=== PATIENT | female | born 1935 | race Caucasian/White ===

== ENCOUNTER 2018-01-09 05:56 | Day surgery (SDC) | payer OTHER ==
[~2018-01-09] VITALS: Ht 167.6 cm; Wt 75.7 kg
--- NOTE | ~2018-01-09 | O ---
[facility] [place] [address] OPERATIVE REPORT Name: INGRID CANDELARIA Room #: DEP [facility].#: [id number] Admission: 01/09/18 Attend Phys: Sadiq Donald MD, Discharge: 01/09/18 Date of : 39 Report #: [id number] THIS REPORT FOR: //name// CC: Yary Sarabia DATE OF SERVICE: 01/09/2018 PREOPERATIVE DIAGNOSIS: Right inguinal hernia. POSTOPERATIVE DIAGNOSES: 1. Incarcerated right inguinal hernia containing bladder and omentum. 2. Incarcerated incisional ventral hernia. PROCEDURES PERFORMED: 1. Robotic-assisted laparoscopic transabdominal preperitoneal (BRYAN) repair of an incarcerated right inguinal hernia with mesh. 2. Laparoscopic reduction and primary suture repair of an incarcerated incisional ventral hernia. SURGEON: Sadiq Donald MD ENTRY LEVEL ACCOUNT REPRESENTATIVE: None. ANESTHESIA: General endotracheal anesthesia. ESTIMATED BLOOD LOSS: Minimal (less than 5 mL). COMPLICATIONS: None appreciated. SPECIMENS: None. INDICATIONS: The patient is an 82-year-old female who is slightly greater than 2 months status post robotic hemicolectomy for colon cancer and presented with significant discomfort in the right groin with an obviously palpable right inguinal hernia. The patient was having urinary issues and this was relieved with pressing on her hernia when urinating and suspicion was that bladder was contained within the hernia. Indication was therefore for the above-mentioned procedure today. DESCRIPTION OF PROCEDURE: After explaining the risks, benefits and alternatives of the procedure with the patient in detail in the preoperative holding area and obtaining written consent, the patient was brought to the operating room and placed supine on the operating room table. After conducting a thorough timeout procedure verifying correct patient and procedure, the patient was given general [facility] [address] [place] [address] OPERATIVE REPORT Name: INGRID CANDELARIA Room #: DEP [facility]#: [id number] Admission: 01/09/18 Attend Phys: Sadiq Donald MD, Discharge: 01/09/18 Date of : 39 Report #: [id number] endotracheal anesthesia. Once adequate anesthesia was obtained, her SCDs were hooked up to pneumatic compression device and she was given a preoperative dose of antibiotics in line with the SCIP protocol. The patient's abdomen was now prepped and draped in standard surgical sterile fashion after positioning her in the low lithotomy position with her legs in the Yellofin stirrups. 5 mL of 0.5% Marcaine with epinephrine were used to anesthetize the skin in the supraumbilical location. A #15 bladed scalpel was used to create a 1 cm transverse skin incision at this location. A 5 mm Visiport was placed over 0 degree 5 mm laparoscope and was introduced through this incision site. Once intra-abdominal placement was verified visually, the obturator for the trocar and laparoscope were both removed and the abdomen was insufflated to 15 mmHg using carbon dioxide gas. The laparoscope was changed to a 5-mm 30-degree laparoscope, which was reintroduced through this trocar. The entire abdomen was evaluated to ensure no injury upon entry. In the left lateral abdomen, there was incarcerated omentum contained within an incisional hernia from one of her robotic trocar sites. The right lateral abdomen was devoid of adhesions and as such I placed an 8 mm robotic trocar lateral to the umbilicus at the anterior axillary line under direct vision after anesthetizing the skin at that location with 5 mL of 0.5% Marcaine with epinephrine and I created a small skin suzi using #15 bladed scalpel. I now utilized a hook electrocautery to transect the omentum at the abdominal wall level in the left lower abdomen. I now placed an additional 8 mm trocar in the left midabdomen lateral to the umbilicus at the anterior axillary line in similar fashion as the other side after anesthetizing the skin at that location with 5 mL of 0.5% Marcaine with epinephrine and I created a small skin suzi using #15 bladed scalpel. I now proceeded to exchange the supraumbilical trocar for an 8 mm da Sharona robotic camera port. This was done under direct vision as well. The da Sharona SI robot was now brought up through the lithotomy position and docked in standard fashion. I then broke scrub and enter the robotic terminal. Immediately a 2-0 Stratafix suture was placed in the abdomen and using a ProGrip forceps and a needle oil truck driver on the right hand, I was able to suture repair the incisional hernia in the left lateral lower abdomen. The needle was removed and passed off the field and I now utilized electrocautery scissors to score the peritoneum from the posterior aspect to the anterior superior iliac spine on the right across midline. I now dissected in the preperitoneal plain using combination of blunt dissection and electrocautery. I carried this dissection as low in the pelvic brim as possible and there was incarcerated omentum and an obvious right inguinal hernia. This was reduced with gentle manual traction and the hernia sac was reduced in full. The right lateral aspect of the dome of the bladder was incarcerated within the hernia. This was reduced with ease as well and from the hernia sac. Once I had carried this dissection as low on the pelvic brim as possible below the pubic tubercle and had ensured that we had reduced the hernia sac completely, I selected a piece of ProGrip mesh tailored to the right groin space. This was entered in the abdomen through the 8 mm trocar and maneuvered into the right groin space, was pressed in the abdominal wall and unrolled inferiorly giving us excellent overlap outside the hernia defect in question. [facility] [address] [place] [address] OPERATIVE REPORT Name: INGRID CANDELARIA Room #: DEP [facility]#: [id number] Admission: 01/09/18 Attend Phys: Sadiq Donald MD, Discharge: 01/09/18 Date of : 39 Report #: [id number] Photodocumentation of all hernias as well as corresponding mesh repair was taken and provided to the patient and the permanent medical record. Hemostasis was assured. The peritoneal flap was replaced and this ensured no scalloping or clam shelling of the hernia mesh. The mesh resided in between the hernia defect and the hernia sac well with significant inferior coverage. I then closed the peritoneal flap laparoscopically after undocking the robot and using the SecureStrap absorbable fixation device to reperitonealize the flap. The abdomen was now fully desufflated. All trocars removed under direct vision. A 4-0 Monocryl was used in a standard subcuticular fashion for all skin incisions and Dermabond glue was applied to all skin wounds. At the end of the procedure, all instrument, needle and sponge counts were correct. The patient tolerated the procedure without incident, was awakened in the operating room and transitioned to the recovery room in stable condition with no apparent complications. <ELECTRONICALLY SIGNED> By: Sadiq Donald MD, FACS 01/12/18 0938 [id number] Sadiq Donald MD, FACS /nt
--- NOTE | ~2018-01-09 | EKG ---
[address] [address] ELECTROCARDIOGRAM REPORT Name: INGRID CANDELARIA Room #: 150-1 [facility]#: [id number] Admission: 01/09/18 Attend Phys: Sadiq Donald MD, Discharge: Date of : 39 Report #: [id number] THIS REPORT FOR: //name// [facility] Test Date: 2018-01-09 Test Time: 06:43:00 Pat Name: INGRID CANDELARIA Department: Room: [facility] Gender: F [employer] Person: ABRIL : 1935 Requested By: Sadiq Donald Order Number: [id number] MD: Diego Montejo Measurements Intervals [place] Rate: 63 P: 78 UT: 29 QRS: 48 QRSD: 91 T: 28 QT: 412 QTc: 422 Interpretive Statements Sinus rhythm No significant abnormality Compared to ECG 11/04/2008 12:10:13 Sinus bradycardia no longer present Electronically Signed On 01-09-2018 8:54:16 CDT by Diego Montejo [email or web address] <ELECTRONICALLY SIGNED> By: Diego Montejo MD, [facility] 01/09/18 0854 [id number] Diego Montejo MD, [facility] /EPI
[~2018-01-09 05:56] MED LIST: ALENDRONATE SOD70 MG PO; ANASTROZOLE1 MG PO; BIOTIN300 MCG PO; CO Q-10100 MG PO; CRESTOR10 MG PO; FISH OIL 1,001000 M2 PO; HAIR, SKIN & N1 EAC3 PO; IMDUR 30 MG TAB30 M1 PO; IRON325 PO; JUICE PLUS PO; MAGOX 400400 MG PO; METOPROLOL TART25 MG PO; OMEPRAZOLE40 MG PO; RESTORIL15 MG PO; SYNTHROID112 MC1 PO; TRAMADOL 50 MG50 MG PO; VITAMIN B-1000.4 MG PO; VITAMIN D1000 UNI1 PO; VITAMINC500 PO; XARELTO20 MG PO
[2018-01-09 06:39] VITALS: BP 146/79
[2018-01-09 07:40] LABS: HEMATOCRIT 36.2 % (37.0-47.0); HEMOGLOBIN 12.1 gm/dL (12.0-15.0); MCH 30.5 pg (26.0-34.0); MCHC 33.4 g/dL (28.0-37.0); MCV 91.1 fL (80.0-100.0); RBC 3.97 mil/uL (4.20-5.00); RDW 15.9 % (10.5-14.5)
[2018-01-09] MEDS ORDERED: NORCO 5-325 TA1 EACH PO (07:44)
[2018-01-09] MEDS ORDERED: NEURONTIN 300300 M1 PO (07:44)
[2018-01-09] MEDS ORDERED: SENOKOT-S TABL1 EACH PO (07:44)
[2018-01-09 09:56] VITALS: BP 146/79
== END 2018-01-09 10:50 | disposition short-term general hospital (02) ==
LOC: TBA 05:56 → OR 05:56
PROVIDERS: Surgery
DX: K40.30 Unilateral inguinal hernia, with obstruction, without gangrene, not specified as recurrent (principal); K43.0 Incisional hernia with obstruction, without gangrene; I10 Essential (primary) hypertension; E78.5 Hyperlipidemia, unspecified; D64.9 Anemia, unspecified; K21.9 Gastro-esophageal reflux disease without esophagitis; E03.9 Hypothyroidism, unspecified; Z90.49 Acquired absence of other specified parts of digestive tract; Z85.038 Personal history of other malignant neoplasm of large intestine; Z79.899 Other long term (current) drug therapy; Z87.891 Personal history of nicotine dependence; Z95.5 Presence of coronary angioplasty implant and graft; Z98.890 Other specified postprocedural states; Z95.1 Presence of aortocoronary bypass graft; Z90.12 Acquired absence of left breast and nipple; Z85.3 Personal history of malignant neoplasm of breast; Z98.82 Breast implant status; Z98.42 Cataract extraction status, left eye; Z98.41 Cataract extraction status, right eye; Z95.0 Presence of cardiac pacemaker
CPT/HCPCS: 49000; 50010; 50101; 50249; 50386; 50555; 50984; 52265; 52266; 54022; 54118; 54169; 56525; 56526; 56531; 56641; 57092; 57130; 57131; 62110; 62900; 70005